=== PATIENT | male | born 1950 | race Two or more races ===

== ENCOUNTER 2024-01-18 13:11 | Outpatient (CLI) | payer OTHER ==
[~2024-01-18 13:11] MED LIST: FENOFIBRATE 145MG; LIPITOR 10MG; LOSARTAN-HCTZ1 EAC2; TOPROL XL25 M1; XELPROS2.5 ML; [UNRECOGNIZED DRUG - OTHER]
[2024-01-19 07:10] LABS: INR 1.3; PARTIAL THROMBOPLASTIN TIME 26.3 SECONDS (22.0-34.0); PROTHROMBIN TIME 13.4 SECONDS (9.0-11.5)
[2024-01-19] MEDS ORDERED: CIPROFLOXACIN2.5 ML OTIC (11:34)
[2024-01-19] MEDS ORDERED: CEPHALEXIN500 M1 PO (11:34)
== END 2024-01-18 13:12 | disposition home or self-care (01) ==
LOC: LAB 13:11
PROVIDERS: ATTEND Otolaryngology Otology & Neurotology
DX: D68.9 Coagulation defect, unspecified (principal)